=== PATIENT | male | born 1945 | race African-American/Black ===

== ENCOUNTER 2025-02-04 17:20 | Emergency (ER) | payer OTHER ==
[~2025-02-04] VITALS: Ht 175.3 cm; Wt 64.0 kg
[2025-02-04 17:22] VITALS: O2SAT 100
[2025-02-04 18:23] LABS: BASOPHILS % 0.2 % (0.0-2.0); EOSINOPHILS % 2.8 % (0.0-5.0); HEMATOCRIT. 42.1 % (42.0-52.0); HEMOGLOBIN. 13.3 g/dL (14.0-18.0); LYMPHOCYTES % 19.3 % (20.0-50.0); MEAN PLATELET VOLUME 7.9 fl (7.4-10.4); MONOCYTES % 7.9 % (2.0-8.0); NEUTROPHILS % 69.8 % (40.0-76.0); PLATELET 210 x1000/uL (130-400); RED BLOOD CELL COUNT 5.86 mill/uL (4.7-6.1); RED CELL DISTRIBUTION WIDTH 14.5 % (11.6-14.6)
[2025-02-04 18:41] LABS: CREATININE 1.2 mg/dL (0.6-1.3); UREA NITROGEN BLOOD 16 mg/dL (9-23)
[2025-02-04 18:43] LABS: ASPARTATE AMINOTRANSFERASE 16 IU/L (<34); BILIRUBIN DIRECT 0.2 mg/dL (<=3.0); PHOSPHORUS 3.2 mg/dL (2.5-4.9)
[2025-02-04 18:44] LABS: BILIRUBIN TOTAL 0.7 mg/dL (0.1-1.0); PROTEIN TOTAL 6.8 g/dL (6.0-8.3); TROPONIN I HIGH SENSITIVITY 7 ng/L (3.0-53)
[2025-02-04 18:47] LABS: T4 FREE 1.55 ng/dL (0.89-1.76)
[2025-02-04 19:24] LABS: INR 1.0
[2025-02-04 20:14] LABS: TROPONIN I HIGH SENSITIVITY 7 ng/L (3.0-53)
[2025-02-04 20:18] LABS: CLARITY URINE CLEAR (CLEAR); COLOR URINE YELLOW (YELLOW); GLUCOSE URINE NEGATIVE (NEGATIVE); KETONES URINE TRACE (NEGATIVE); LEUKOCYTE ESTERASE URINE NEGATIVE (NEGATIVE); NITRITE URINE NEGATIVE (NEGATIVE); OCCULT BLOOD URINE NEGATIVE (NEGATIVE); PH URINE 5.5 (4.5-8.0); PROTEIN URINE TRACE (NEGATIVE); SPECIFIC GRAVITY URINE 1.015 (1.005-1.030); UROBILINOGEN URINE 0.2 E.U./dL (0.2-1.0)
[2025-02-04 20:27] LABS: BACTERIA URINE 1+; RBC URINE 0-2 /hpf (0-2); SQUAMOUS EPITHELIAL CELL URINE 2+ /lpf (RARE/1+); WBC URINE 0-2 /hpf (0-2)
[2025-02-04] MEDS: BACITRACIN ZINC OINT UDPKT TOP ONE (21:21)
[2025-02-04] MEDS: BACITRACIN ZINC OINT UDPKT TOP SCH (21:30)
[2025-02-04 21:46] VITALS: BP 118/79; PULSE 70; RESP 17; TEMP 36.8; O2SAT 98
== END 2025-02-04 21:54 | disposition short-term general hospital (02) ==
LOC: ER 17:20
DX: S00.81XA Abrasion of other part of head, initial encounter (principal); R55 Syncope and collapse; R00.1 Bradycardia, unspecified; E78.00 Pure hypercholesterolemia, unspecified; I25.2 Old myocardial infarction; I10 Essential (primary) hypertension; R06.02 Shortness of breath; X58.XXXA Exposure to other specified factors, initial encounter; Y93.89 Activity, other specified; Y92.89 Other specified places as the place of occurrence of the external cause; Y99.8 Other external cause status
CPT/HCPCS: 36415; 71045; 80048; 80076; 81003; 83735; 83880; 84100; 84439; 84443; 84481; 84484; 85025; 93005; 99291